=== PATIENT | female | born 1990 | race Caucasian/White ===

== ENCOUNTER 2018-08-03 10:11 | Emergency (ER) | payer OTHER ==
--- NOTE | 2018-08-03 10:26 | EDPHY ---
H & P Stated Complaint: allergic reaction Time Seen by Provider: 08/03/18 10:25 HPI/ROS: HPI: This is a 28-year-old female who presents with Chief Complaint: Allergic reaction Location: Body Quality: Hives Duration: 1 hr prior to arrival Signs and Symptoms: no shortness of breath at rest, no shortness of breath on exertion, no cough, no chest pain, no palpitations, no lower extremity edema, no wheezing, no orthopnea, no paroxysmal nocturnal dyspnea, no fever, no hemoptysis, no carpal pedal spasms Timing: Sudden onset Severity: Moderate Context: Patient reports that she has asthma and allergies and was at her graduate intern this morning and had skin testing performed. She reports that she stayed for 20 min in the office and had no reaction. She then return to work and started to developed hives across her front of her chest and back and down her arms. She denies any difficulty breathing, wheezing, nausea, abdominal pain , difficulty swallowing, difficulty talking. Patient reports that she took Claritin and Zyrtec with moderate relief of symptoms. She has no prior history of anaphylaxis. Modifying Factors: Claritin and Zyrtec Comment: ROS: A comprehensive 10 system review of systems is otherwise negative aside from elements mentioned in the history of present illness. MEDICAL/SURGICAL/SOCIAL HISTORY: Medical history: Asthma Surgical history: Denies Social history: Never smoked. Employed. CONSTITUTIONAL: Polite and cooperative adult white female, awake and alert, no obvious distress HEENT: Atraumatic and normocephalic, PERRL, EOMI. Nares patent; no rhinorrhea; no nasal mucosal edema. Tympanic membranes clear. Oropharynx clear, no postpharyngeal edema, no exudate and moist pink mucosa. Airway patent. No lymphadenopathy. No meningismus. Cardiovascular: Normal S1/S2, regular rate, regular rhythm, without murmur rub or gallop. PULMONARY/CHEST: Symmetrical and nontender. Clear to auscultation bilaterally. Good air movement. No accessory muscle usage. ABDOMEN: Soft, nondistended, nontender, no rebound, no guarding, no peritoneal signs, no masses or organomegaly. No CVAT. EXTREMITIES: 2/2 pulses, strength 5/5, no deformities, no clubbing, no cyanosis or edema. NEUROLOGICAL: no focal neuro deficits. GCS 15. Speech clear. SKIN: Warm and dry, no erythema. Scattered hives noted to torso. Good capillary refill. Source: Patient Exam Limitations: No limitations - Personal History Current Tetanus/Diphtheria Vaccine: Yes Current Tetanus Diphtheria and Acellular Pertussis (TDAP): Yes - Medical/Surgical History Hx Asthma: Yes Hx Chronic Respiratory Disease: No Hx Diabetes: No Hx Cardiac Disease: No Hx Renal Disease: No Hx Cirrhosis: No Hx Alcoholism: No Hx HIV/AIDS: No Hx Splenectomy or Spleen Trauma: No Other PMH: asthma, - Social History Smoking Status: Never smoked Constitutional: Initial Vital Signs Temperature (C) 37 C 08/03/18 10:16 Heart Rate 84 08/03/18 10:16 Respiratory Rate 16 08/03/18 10:16 Blood Pressure 110/69 08/03/18 10:16 O2 Sat (%) 98 08/03/18 10:16 O2 Delivery Mode Room Air Allergies/Adverse Reactions: No Known Allergies Allergy (Unverified 08/03/18 10:15) Home Medications: Medication Instructions Recorded Claritin 08/03/18 Zyrtec 08/03/18 predniSONE 20 mg PO DAILY #3 tab 08/03/18 Medical Decision Making ED Course/Re-evaluation: Vital signs reviewed and stable upon arrival. No signs of airway compromise/anaphylaxis/angioedema Patient's symptoms were already resolving with Claritin and Zyrtec. P. O. Decadron 10 mg given Patient observe for 2 hr in the emergency room with complete relief of symptoms. IV is patient to take Benadryl and gave prednisone 20 mg daily x3 days She is to follow up with her graduate intern. This patient was seen under the supervision of my secondary supervising physician. I evaluated care for this patient independently. Discussed this patient with Dr. Byrnes who did not see the patient. Differential Diagnosis: Differential diagnosis is allergic reaction to allergy skin testing. - Data Points Medications Given: Discontinued Medications Dexamethasone (Decadron) 10 mg PO EDNOW ONE Stop: 08/03/18 10:49 Last Admin: 08/03/18 10:52 Dose: 10 mg Departure - Departure Disposition: Home, Routine, Self-Care Clinical Impression: Allergic reaction Qualifiers: Encounter type: initial encounter Qualified Code(s): T78.40XA - Allergy, unspecified, initial encounter Condition: Good Instructions: Urticaria (ED), General Allergic Reaction (ED), Allergy Testing ( ED) Additional Instructions: Take Benadryl 25-50 mg every 4-6 hours as needed for allergic reaction. Take prednisone 20 mg daily x3 days. Return at once for any worsening symptoms or concerns. Please follow-up with graduate intern concerning allergic reaction. Referrals: OTHER [facility]ARE [facility],. [Administrative Aide] - As per Instructions (Control Specialist) Prescriptions: predniSONE 20 mg PO DAILY #3 tab
[2018-08-03] MEDS ORDERED: DEXAMETHASONE 4 MG TAB PO ONE (10:48)
[2018-08-03 12:02] VITALS: BP 104/70
== END 2018-08-03 12:02 | disposition home or self-care (01) ==
DX: T78.40XA Allergy, unspecified, initial encounter (principal); J45.909 Unspecified asthma, uncomplicated